=== PATIENT | male | born 1935 | race Caucasian/White ===

== ENCOUNTER 2025-02-18 16:30 | Inpatient (IN) | payer MEDICARE, MEDICAID ==
[~2025-02-18] VITALS: Ht 175.3 cm; Wt 81.2 kg
--- NOTE | 2025-02-18 16:59 | ECG ---
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
--- NOTE | 2025-02-18 17:04 | ED.PDOC ---
General HPI Comments 89 y/o M, BIBA, with PMHx of Alzheimer's disease, dementia, HTN, and DM II presents to the ED for CC of urinary. EMS reports, patient is coming from [facility] where he c/o dysuria and hematuria onset, (02/13/25). At this time patient complains of left leg pain, dizziness, and headache. Per EMS, patient had a fall x1 month ago landing on his right side and has a large bruise to his right arm for which he was never seen for. Patient is poor historian due to dementia; no additional details or history available at this time. Chief Complaint: Urinary Time Seen by MD: 17:00 Primary Care Provider: NONE Reviewed notes: Nurses Notes, Pulp Press Tender Notes, Medications, Allergies Allergies: Coded Allergies: Penicillins (Verified Allergy, Unknown, 02/18/25) Mode of Arrival: EMS Severity: Moderate Inability to void: None Timing: Weeks Duration: Since onset Prehospital treatment: None Onset: Spontaneous Symptoms: Dysuria History of: None Location: None Penile discharge: None Modifying factors: None associated signs and symptoms: Dysuria Past Medical History PAST MEDICAL HISTORY: Alzheimer, Dementia, Depression, DM, HTN Surgical History: Hernia Repair, Denies all surgeries Family History Family History: Unobtainable Social History Smoker: Cigarettes Alcohol: Heavy Drugs: Denies Drug Use Lives In: Home Constitutional: denies: chills, diaphoresis, fatigue, fever, malaise, sweats, weakness, others EENTM: denies: blurred vision, double vision, ear bleeding, ear discharge, ear drainage, ear pain, ear ringing, eye pain, eye redness, hearing loss, mouth pain, mouth swelling, nasal discharge, nose bleeding, nose congestion, nose pain, photophobia, tearing, throat pain, throat swelling, voice changes, others Respiratory: denies: cough, hemoptysis, orthopnea, SOB at rest, shortness of breath, SOB with excertion, stridor, wheezing, others Cardiovascular: denies: chest pain, dizzy spells, diaphoresis, Dyspnea on exertion, edema, irregular heart beat, left arm pain, lightheadedness, palpitations, PND, syncope, others Gastrointestinal: denies: abdomen distended, abdominal pain, blood streaked bowels, constipated, diarrhea, dysphagia, difficulty swallowing, hematemesis, me steph, nausea, poor appetite, poor fluid intake, rectal bleeding, rectal pain, vomiting, others Genitourinary: reports: burning, dysuria, hematuria; denies: flank pain, mehrdad quency, incontinence, penile discharge, penile sore, pain, testicle pain, testicle swelling, urgency, others Neurological: denies: dizziness, fainting, headache, left sided numbness, left sided weakness, numbness, paresthesia, pre-existing deficit, right sided numbness, right sided weakness, seizure, speech problems, tingling, tremors, weakness, others Musculoskeletal: reports: others (right leg pain); denies: back pain, gout, joint pain, joint swelling, muscle pain, muscle stiffness, neck pain Integumetry: denies: bruises, change in color, change in hair/nails, dryness, laceration, lesions, lumps, rash, wounds, others Allergic/Immunocompromised: denies: Difficulty Healing, Frequent Infections, Hives, Itching, others Hematologic/Lymphatic: denies: anemia, blood clots, easy bleeding, easy bruising, swollen glands, others Endocrine: denies: excessive hunger, excessive sweating, excessive thirst, excessive urination, flushing, intolerance to cold, intolerance to heat, unexplained weight gain, unexplained weight loss, others Psychiatric: denies: anxiety, bipolar disorder, depression, hopeless, panic disorder, schizophrenia, sleepless, suicidal, others All Other Systems: Reviewed and Negative Physical Exam General Appearance: No Apparent Distress, Normal HEENT: Normal ENT Inspection, Pharynx Normal Neck: Full Range of Motion, Non-Tender, Normal, Normal Inspection Respiratory: Chest Non-Tender, Lungs Clear, No Accessory Muscle Use, No Respiratory Distress, Normal Breath Sounds Cardiovascular: No Edema, No Murmur, No Gallop, Normal Peripheral Pulses, Regular Rate/Rhythm Breast Exam: Deferred Gastrointestinal: No Organomegaly, Non Tender, No Pulsatile Mass, Normal Bowel Sounds, Soft Genitalia: Deferred Pelvic: Deferred Rectal: Deferred Extremities: No calf tenderness, Normal capillary refill, Normal inspection, Normal range of motion, Non-tender, No pedal edema Musculoskeletal : Apperance: Normal Neurologic: Alert, head banquet waiter/waitress II-XII nml as Tested, No Motor Deficits, Normal Affect, Normal Mood, No Sensory Deficits Cerebellar Function: Normal Reflexes: Normal Skin: Dry, Normal Color, Warm Lymphatic: No Adenopathy Was a procedure done? Was a procedure done?: No Differential Diagnosis Kidney stone (Female): N/A Kidney stone (Male): Pyelonephritis, Urinary obstruction, Urolithiasis, Urinary tract infection Penile/Scrotal: N/A Urinary Problem (Male): UTI Urinary Problem (Female): N/A X-Ray, Labs, Meds, VS Vital Signs Date Time Temp Pulse Resp B/P (MAP) Pulse Ox O2 Delivery O2 Flow Rate FiO2 02/18/25 17:34 74 20 136/69 (91) 97 02/18/25 17:34 74 16 96 Room Air* 0 21 02/18/25 16:53 65 02/18/25 16:46 98.4 71 16 126/78 97 98.4 Lab Test 02/18/25 17:26 Range/Units White Blood Count 11.5 H 4.4-10.8 10^3/uL Red Blood Count 3.87 L 4.5-5.90 10^6/uL Hemoglobin 12.2 L 13.5-17.5 g/dL Hematocrit 36.4 L 41.0-53.0 % Mean Corpuscular Volume 93.8 80.0-100.0 fL Mean Corpuscular Hemoglobin 31.6 28.0-32.0 pg Mean Corpuscular Hemoglobin Concent 33.6 32.0-36.0 g/dL Red Cell Distribution Width 15.2 H 11.8-14.3 % Platelet Count 382 140-450 10^3/uL Mean Platelet Volume 6.7 L 6.9-10.8 fL Neutrophils (%) (Auto) 77.0 37.0-80.0 % Lymphocytes (%) (Auto) 12.1 10.0-50.0 % Monocytes (%) (Auto) 8.6 0.0-12.0 % Eosinophils (%) (Auto) 2.0 0.0-7.0 % Basophils (%) (Auto) 0.3 0.0-2.0 % Neutrophils # (Auto) 8.8 H 1.6-8.6 10 ^3/uL Lymphocytes # (Auto) 1.4 0.4-5.4 10 ^3/uL Monocytes # (Auto) 1.0 0-1.3 10 ^3/uL Eosinophils # (Auto) 0.2 0-0.8 10 ^3/uL Basophils # (Auto) 0 0-0.2 10 ^3/uL Nucleated Red Blood Cells 0.0 % Sodium Level 141 136-145 mmol/L Potassium Level 4.4 3.5-5.1 mmol/L Chloride Level 107 98-107 mmol/L Carbon Dioxide Level 25 20-31 mmol/L Anion Gap 9 5-15 Blood Urea Nitrogen 28 H 9-23 mg/dL Creatinine 1.15 0.700-1.30 mg/dL Glomerular Filtration Rate Calc 61 >90 mL/min BUN/Creatinine Ratio 24.3 H 10.0-20.0 Serum Glucose 99 74-106 mg/dL Calcium Level 9.1 8.7-10.4 mg/dL [place] [address] Ph: [phone] DIAGNOSTIC IMAGING Diagnostic Imaging Report : [id number] Signed PATIENT: CURRY ENRIQUEZ ACCT: [id number] UNIT: [id number] : 1935 LOC: ER ROOM / BED: / AGE / SEX: 89 / M ADM STATUS: REG ER SERVICE 1655 ORDERING PHYSICIAN: LINDA RANDOLPH PROCEDURE(s): HWOCT - HEAD WITHOUT CONTRAST REASON: head injury ORDER NUMBER(s): [id number], ACCESSION NUMBER(s): [id number] COMPUTERIZED TOMOGRAPHY OF THE HEAD WITHOUT CONTRAST REASON FOR STUDY: head injury COMPARISON: None TECHNIQUE: Helical tomographic scans were obtained through the brain. 2-D coronal and sagittal reformatted images are provided. Radiation optimization: All CT scans at this facility use at least one of these dose optimization techniques: Automated exposure control mA and/or kV adjustment per patient size (includes targeted exams where dose is matched to clinical indication) or iterative reconstruction. RADIATION DOSE: CTDI: 64 mGy DLP: 1127 mGy-cm FINDINGS: No suspicious intracranial hyperdensity to suggest acute blood. There is no mass effect nor midline shift. There is mild generalized volume loss with compensatory enlargement of the CSF spaces. There is no hydrocephalus. The suprasellar cistern is intact. There are scattered periventricular and deep white matter hypodensities that are most consistent with chronic microangiopathic changes. The calvarium is intact. The visualized mastoid air cells and paranasal sinuses are clear. There is soft tissue density in bilateral external auditory canals, likely cerumen. There is opacification of the epitympanum within the left middle ear. IMPRESSION: No acute intracranial abnormality. Mild generalized volume loss with chronic small vessel ischemic change. Opacification of the epitympanum within the left middle ear. This could represent fluid such as in the case of otitis media or a cholesteatoma in the co rrect clinical context. Correlate clinically. Nonemergent, outpatient temporal bone CT and/or MRI can be considered in the appropriate clinical context. ATED BY: ARIAN JOHNSON MD DICTATED DATE/TIME: 02/18/251733 SIGNED BY: ARIAN JOHNSON MD SIGNED DATE/TIME: 02/18/251733 CC: [place] [id number] Ph: [phone] DIAGNOSTIC IMAGING Diagnostic Imaging Report : [id number] Signed PATIENT: UCRRY ENRIQUEZ ACCT: [id number] UNIT: [id number] : 1935 LOC: ER ROOM / BED: / AGE / SEX: 89 / M ADM STATUS: REG ER SERVICE 54 ORDERING PHYSICIAN: LINDA RANDOLPH PROCEDURE(s): ABPL - CT AB PEL WO CON-NO ORAL OR IV REASON: abd pain ORDER NUMBER(s): [id number], ACCESSION NUMBER(s): [id number] Indication: abd pain Technique: CT axial images of the abdomen and pelvis are obtained without contrast. Coronal and sagittal reformats were obtained. Radiation Dose Information: CTDI volume is 14.8 mGy. Dose-length product is 757.93 mGy*cm Comparison: None FINDINGS: There is limited interpretation of the abdomen and pelvis without administration of intravenous contrast. Lung bases demonstrate atelectasis. Pulmonary emphysematous changes. Adrenal glands, spleen, pancreas unremarkable in shape. Cholelithiasis. 6 mm left hepatic lobe hypodensity, too small to characterize statistically likely represent cysts. The kidneys demonstrate no hydronephrosis / nephrolithiasis. Moderate size hiatal hernia. Stomach is relatively nondistended. Small bowel loops are normal in caliber. Colonic diverticular disease. Moderate volume stool within the colon. No secondary signs for appendicitis. Right inguinal hernia containing small bowel loops without evidence for obstruction measuring 4 x 3 cm. Abdominal aortic atherosclerotic disease. Bladder is partially distended. No free pelvic fluid. No inguinal lymphadenopathy. Severe degenerate changes of the left hip with [id number]. Moderate degenerate changes right hip. Moderate to advanced thoracolumbar degenerative disc disease. IMPRESSION: Limited evaluation without contrast. Cholelithiasis. Moderate volume stool within the colon. Colonic diverticular disease. Atherosclerotic disease. Right inguinal hernia measuring 4 x 3 cm without evidence for bowel obstruction. Severe degenerate changes left hip. Moderate size hiatal hernia. Other findings as described. ATED BY: KINGSLEY CHURCH MD DICTATED DATE/TIME: 02/18/251739 SIGNED BY: KINGSLEY CHURCH MD SIGNED DATE/TIME: 02/18/251739 CC: X-Ray, Labs, Meds, VS Comment Patient will be admitted for urinary tract infection. Patient has a history of dementia and Alzheimer's. Concerns of possible issues with self care. Recommend possible social service consult for placement Time of 1ST Reevaluation: 17:30 Reevaluation 1ST: Unchanged Patient Education/Counseling: Diagnosis, Treatment Family Education/Counseling: No Family Present SEPSIS Sepsis Screen Date sepsis recognized/suspect: Feb 18, 2025 Time Sepsis recognized/suspect: 1636 Recent Procedure: No On Antibiotic Therapy: No Respiratory Rate >20: No Heart Rate >90: No Temp<36 C (96.8 F) or >38.3 C: No SBP <90 or MAP <65 mmHG: No New Acute Mental Status Change: No Is the patient on CPAP, BIPAP,: No Physician Orders Head Without Contrast (02/18/25 16:55) Ct Ab Pel Wo Con-No Oral Or Iv (02/18/25 16:55) Urinalysis (02/18/25 16:55) Doxycycline 100mg/100ml (Vibramycin) (02/18/25 18:30) Morphine Sulfate Injection (02/18/25 18:30) Ondansetron Hcl (Zofran) (02/18/25 18:30) Vital Signs Date Time Temp Pulse Resp B/P (MAP) Pulse Ox O2 Delivery O2 Flow Rate FiO2 02/18/25 17:34 74 20 136/69 (91) 97 02/18/25 17:34 74 16 96 Room Air* 0 21 02/18/25 16:53 65 02/18/25 16:46 98.4 71 16 126/78 97 98.4 Laboratory Tests Test 02/18/25 17:26 White Blood Count 11.5 10^3/uL (4.4-10.8) H Departure 1 Departure Time of Disposition: 18:31 Impression: Primary Impression: UTI (urinary tract infection) Qualified Codes: N30.00 - Acute cystitis without hematuria Additional Impressions: Dementia Qualified Codes: G30.9 - Alzheimer's disease, unspecified; F02.B0 - Dementia in other diseases classified elsewhere, moderate, without behavioral disturbance, psychotic disturbance, mood disturbance, and anxiety Left hip pain Disposition: ADMITTED INPATIENT Condition: Stable Critical Care Note Critical Care Time?: No Stability Stability form required: No Heart Score Heart Score: Heart Score Response (Comments) Value History N/A 0 EKG N/A 0 Age N/A 0 Risk Factors N/A 0 Troponin N/A 0 Total 0 I personally scribed for RANDOLPH,CHRISTOPHER E AIRPLANE INSPECTOR ([facility]VRUICH) on 02/18/25 at 17:04. Electronically submitted by Chantel Vigil ([facility]). I personally scribed for RANDOLPH,CHRISTOPHER E AIRPLANE INSPECTOR ([employer]) on 02/18/25 at 17:11. Electronically submitted by Chantel Vigil ([facility]). I personally scribed for RANDOLPH,CHRISTOPHER E AIRPLANE INSPECTOR ([employer]) on 02/18/25 at 17:15. Electronically submitted by Chantel Vigil ([email or web address]). I personally scribed for RANDOLPH,CHRISTOPHER E AIRPLANE INSPECTOR ([place]) on 02/18/25 at 17:26. Electronically submitted by Chantel Vigil ([facility]). I personally scribed for RANDOLPH,CHRISTOPHER E AIRPLANE INSPECTOR ([employer]) on 02/18/25 at 17:50. Electronically submitted by Chantel Vigil ([facility]). I personally scribed for LINDA RANDOLPH ([facility]) on 02/18/25 at 17:52. Electronically submitted by Chantel Vigil ([email or web address]). LINDA RANDOLPH Feb 18, 2025 17:04
[2025-02-18 17:34] VITALS: PULSE 74; RESP 16; O2SAT 96
--- NOTE | 2025-02-18 17:37 | DVH ---
COMPUTERIZED TOMOGRAPHY OF THE HEAD WITHOUT CONTRAST REASON FOR STUDY: head injury COMPARISON: None TECHNIQUE: Helical tomographic scans were obtained through the brain. 2-D coronal and sagittal refor matted images are provided. Radiation optimization: All CT scans at this facility use at least one of these dose optimization techniques: Automated exposure control mA and/or kV adjustment per patient s ize (includes targeted exams where dose is matched to clinical indication) or iterative reconstructio n. RADIATION DOSE: CTDI: 64 mGy DLP: 1127 mGy-cm FINDINGS: No suspicious intracranial hyperdensity to suggest acute blood. There is no mass effect n or midline shift. There is mild generalized volume loss with compensatory enlargement of the CSF spac es. There is no hydrocephalus. The suprasellar cistern is intact. There are scattered periventricular and deep white matter hypodensities that are most consistent with chronic microangiopathic changes. The calvarium is intact. The visualized mastoid air cells and paranasal sinuses are clear. There is s oft tissue density in bilateral external auditory canals, likely cerumen. There is opacification of t he epitympanum within the left middle ear. IMPRESSION: No acute intracranial abnormality. Mild generalized volume loss with chronic small vessel ischemic change. Opacification of the epitympanum within the left middle ear. This could represent fluid such as in th e case of otitis media or a cholesteatoma in the correct clinical context. Correlate clinically. None mergent, outpatient temporal bone CT and/or MRI can be considered in the appropriate clinical context .
--- NOTE | 2025-02-18 17:41 | DVH ---
Indication: abd pain Technique: CT axial images of the abdomen and pelvis are obtained without contrast. Coronal and sagit karey reformats were obtained. Radiation Dose Information: CTDI volume is 14.8 mGy. Dose-length product is 757.93 mGy*cm Comparison: None FINDINGS: There is limited interpretation of the abdomen and pelvis without administration of intravenous contr ast. Lung bases demonstrate atelectasis. Pulmonary emphysematous changes. Adrenal glands, spleen, pancreas unremarkable in shape. Cholelithiasis. 6 mm left hepatic lobe hypod ensity, too small to characterize statistically likely represent cysts. The kidneys demonstrate no hydronephrosis / nephrolithiasis. Moderate size hiatal hernia. Stomach is relatively nondistended. Small bowel loops are normal in ca liber. Colonic diverticular disease. Moderate volume stool within the colon. No secondary signs for appendi citis. Right inguinal hernia containing small bowel loops without evidence for obstruction measuring 4 x 3 cm. Abdominal aortic atherosclerotic disease. Bladder is partially distended. No free pelvic fluid. No in guinal lymphadenopathy. Severe degenerate changes of the left hip with [id number]. Moderate degenerate changes right hip. M oderate to advanced thoracolumbar degenerative disc disease. IMPRESSION: Limited evaluation without contrast. Cholelithiasis. Moderate volume stool within the colon. Colonic diverticular disease. Atherosclerotic disease. Right inguinal hernia measuring 4 x 3 cm without evidence for bowel obstruction. Severe degenerate changes left hip. Moderate size hiatal hernia. Other findings as described.
[2025-02-18 17:42] LABS: Hematocrit 36.4 % (41.0-53.0); Hemoglobin 12.2 g/dL (13.5-17.5); Mean Corpuscular Hemoglobin 31.6 pg (28.0-32.0); Mean Corpuscular Volume 93.8 fL (80.0-100.0); Nucleated Red Blood Cells % 0.0 %
[2025-02-18 17:58] LABS: Potassium 4.4 mmol/L (3.5-5.1); Sodium 141 mmol/L (136-145)
[2025-02-18 17:59] LABS: Anion Gap 9 (5-15); Calcium 9.1 mg/dL (8.7-10.4); Carbon Dioxide 25 mmol/L (20-31)
[2025-02-18 18:04] LABS: BUN/Creatinine Ratio 24.3 (10.0-20.0); Glucose 99 mg/dL (74-106)
[2025-02-18 18:15] LABS: Blood Urea Nitrogen 28 mg/dL (9-23); Chloride 107 mmol/L (98-107)
[2025-02-18] MEDS: ONDANSETRON HCL 4 MG/2 ML VIAL IV ONE (18:46)
[2025-02-18] MEDS: DOXYCYCLINE 100MG/100ML 100 ML IV ONE (18:47)
[2025-02-18] MEDS: MORPHINE SULFATE 4 MG/ML SYR/VIAL IV ONE (18:51)
[2025-02-18] MEDS ORDERED: ESCI5TAB20 PO (18:52)
[2025-02-18] MEDS ORDERED: DOCUSATE SOD 100 MG CAP PO PRN (19:00)
[2025-02-18] MEDS ORDERED: DEXTROSE (50%) 50ML SYRG IV PRN (19:00)
[2025-02-18 19:45] VITALS: PULSE 84; RESP 20; O2SAT 96
[2025-02-18] MEDS: SOD CHL 0.45% 1,000 ML IV SCH (20:15)
--- NOTE | 2025-02-18 20:25 | DVHHP2 ---
History of Present Illness Reason for Visit: UTI (urinary tract infection) History of Present Illness The patient is a 89-year-old male with past medical history of Alzheimer, dementia, depression, diabetes mellitus, and hypertension who presented to [facility] ED for evaluation of hematuria. Patient is currently residing as [facility] and was complaint of left leg pain, dizziness, headache, dysuria, and hematuria onset. As reported by EMS, patient had a fall 1 month ago landing on his right-side with sustained large bruises to the right arm and was never seen for medical attention. Patient was seen and evaluated in the ED, laboratory data shows WBC 11.5, platelets 382, sodium 141, potassium 4.4, BUN 28, creatinine 1.15, glucose 99, calcium 9.1, blood pressure 136/69, heart rate 74, temperature 98.4 F, O2 saturation 97% on room air. Abdomen/pelvis CT revealing cholelithiasis, right inguinal hernia measuring 4 x 3 cm without evidence for bowel obstruction, severe degenerative changes left hip, moderate size hiatal hernia. Please see medication orders section in the computer. On my assessment, patient denies chest pain, no headache, no dizziness at this moment, no shortness of breaths, no nausea, no vomiting, no fever, no chills. Patient was admitted for further evaluation and medical management. Past Medical History Alzheimer, Dementia, Depression, DM, HTN Past Surgical History Hernia Repair Family History Reviewed, noncontributory to the management of this case. Past Social History The patient lives at home, smokes cigarettes, drinks alcohol heavily, denies illicit drugs abuse. Review of Systems Constitutional: No: Fever, Chills, Sweats, Weakness, Malaise, Other Eyes: No: Pain, Vision change, Conjunctivae inflammation, Eyelid inflammation, Other, Redness ENT: No: Ear pain, Ear discharge, Nose pain, Nose discharge, Nose congestion, Mouth pain, Mouth swelling, Throat pain, Throat swelling, Other Respiratory: No: Cough, Dry, Shortness of breath, SOB with excertion, Wheezing, Hemoptysis, Pleuritic Pain, Sputum, Wheezing, Other Cardiovascular: No: Chest Pain, Palpitations, Orthopnea, Paroxysmal Noc. Dy spnea, Edema, Lt Headedness, Other Gastrointestinal: No: Nausea, Vomiting, Abdominal Pain, Diarrhea, Constipation, Melena, Hematochezia, Other Genitourinary: Dysuria; No Frequency, No Incontinence; Hematuria; No Retention; Other (Burning) Musculoskeletal: other (right leg pain); No: neck pain, shoulder pain, arm pain, back pain, hand pain, leg pain, foot pain Skin: Other (Right arm bruises); No: Rash, Lesions, Jaundice, Bruising Neurological: No: Weakness, Numbness, Incoordination, Change in speech, Confusion, Seizures, Other Allergies: Coded Allergies: Penicillins (Verified Allergy, Unknown, 02/18/25) Medications Current Medications Medications Dose Ordered Sig/Rich Route Start Time Stop Time Status Last Admin Dose Admin Memantine 10 mg DAILY PO 02/19/25 10:00 Gabapentin 300 mg BID PO 02/18/25 22:00 Doxycycline Hyclate 100 ml @ 50 mls/hr Q12H IV 02/19/25 09:00 Tamsulosin HCl 0.4 mg QPM PO 02/19/25 18:00 Aspirin 81 mg DAILY PO 02/19/25 10:00 Diagnostic Test (Pha) 1 strip ACHS 02/18/25 22:00 Insulin Human Regular ACHS SC 02/18/25 22:00 Dextrose 50 ml UD PRN IV 02/18/25 19:00 Sodium Chloride 10 ml Q8HR IV 02/18/25 22:00 Acetaminophen/ Hydrocodone Bitart 1 tab Q4HP PRN PO 02/18/25 19:00 Ondansetron HCl 4 mg Q4HP PRN IV 02/18/25 19:00 Docusate Sodium 100 mg BIDPRN PRN PO 02/18/25 19:00 Acetaminophen 650 mg Q6HP PRN PO 02/18/25 19:00 Sodium Chloride 1,000 ml @ 50 mls/hr Q20H IV 02/18/25 19:00 Exam Vital Signs Vital Signs Date Time Temp Pulse Resp B/P (MAP) Pulse Ox O2 Delivery O2 Flow Rate FiO2 02/18/25 18:51 75 20 151/69 02/18/25 17:34 97 02/18/25 17:34 Room Air* 0 21 02/18/25 16:46 98.4 98.4 General Appearance: Alert, Oriented X3, Cooperative, No acute distress HEENT: Atraumatic, PERRLA, EOMI, Mucous membr. moist/pink Respiratory: Clear to auscultation, Normal air movement Cardiovascular: Regular rate, Normal S1, Normal S2, No murmurs Abdominal: Normal bowel sounds, Soft, No tenderness, No hepatospenomegaly, No masses Extremities: No clubbing, No cyanosis, No edema, Normal pulses, No tend erness/swelling Skin: No rashes, No significant lesion Neuro: Normal speech, Normal tone, Sensation intact, Cranial nerves 3-12 NL, Reflexes 2+, Other (Generalized weakness) Psych/Mental Status: Mental status NL, Mood NL Labs/Xrays Labs Test 02/18/25 17:26 Range/Units White Blood Count 11.5 H 4.4-10.8 10^3/uL Red Blood Count 3.87 L 4.5-5.90 10^6/uL Hemoglobin 12.2 L 13.5-17.5 g/dL Hematocrit 36.4 L 41.0-53.0 % Mean Corpuscular Volume 93.8 80.0-100.0 fL Mean Corpuscular Hemoglobin 31.6 28.0-32.0 pg Mean Corpuscular Hemoglobin Concent 33.6 32.0-36.0 g/dL Red Cell Distribution Width 15.2 H 11.8-14.3 % Platelet Count 382 140-450 10^3/uL Mean Platelet Volume 6.7 L 6.9-10.8 fL Neutrophils (%) (Auto) 77.0 37.0-80.0 % Lymphocytes (%) (Auto) 12.1 10.0-50.0 % Monocytes (%) (Auto) 8.6 0.0-12.0 % Eosinophils (%) (Auto) 2.0 0.0-7.0 % Basophils (%) (Auto) 0.3 0.0-2.0 % Neutrophils # (Auto) 8.8 H 1.6-8.6 10 ^3/uL Lymphocytes # (Auto) 1.4 0.4-5.4 10 ^3/uL Monocytes # (Auto) 1.0 0-1.3 10 ^3/uL Eosinophils # (Auto) 0.2 0-0.8 10 ^3/uL Basophils # (Auto) 0 0-0.2 10 ^3/uL Nucleated Red Blood Cells 0.0 % Sodium Level 141 136-145 mmol/L Potassium Level 4.4 3.5-5.1 mmol/L Chloride Level 107 98-107 mmol/L Carbon Dioxide Level 25 20-31 mmol/L Anion Gap 9 5-15 Blood Urea Nitrogen 28 H 9-23 mg/dL Creatinine 1.15 0.700-1.30 mg/dL Glomerular Filtration Rate Calc 61 >90 mL/min BUN/Creatinine Ratio 24.3 H 10.0-20.0 Serum Glucose 99 74-106 mg/dL Calcium Level 9.1 8.7-10.4 mg/dL PATIENT: CURRY ENRIQUEZ ACCT: [id number] UNIT: [id number] : 1935 LOC: ER ROOM / BED: / AGE / SEX: 89 / M ADM STATUS: REG ER SERVICE [id number] ORDERING PHYSICIAN: LINDA RANDOLPH PROCEDURE(s): ABPL - CT AB PEL WO CON-NO ORAL OR IV REASON: abd pain ORDER NUMBER(s): [id number], ACCESSION NUMBER(s): [id number] Indication: abd pain Technique: CT axial images of the abdomen and pelvis are obtained without contrast. Coronal and sagittal reformats were obtained. Radiation Dose Information: CTDI volume is 14.8 mGy. Dose-length product is 757.93 mGy*cm Comparison: None FINDINGS: There is limited interpretation of the abdomen and pelvis without administration of intravenous contrast. Lung bases demonstrate atelectasis. Pulmonary emphysematous changes. Adrenal glands, spleen, pancreas unremarkable in shape. Cholelithiasis. 6 mm left hepatic lobe hypodensity, too small to characterize statistically likely represent cysts. The kidneys demonstrate no hydronephrosis/nephrolithiasis. Moderate size hiatal hernia. Stomach is relatively nondistended. Small bowel loops are normal in caliber. Colonic diverticular disease. Moderate volume stool within the colon. No secondary signs for appendicitis. Right inguinal hernia containing small bowel loops without evidence for obstruction measuring 4 x 3 cm. Abdominal aortic atherosclerotic disease. Bladder is partially distended. No free pelvic fluid. No inguinal lymphadenopathy. Severe degenerate changes of the left hip with [id number]. Moderate degenerate changes right hip. Moderate to advanced thoracolumbar degenerative disc disease. IMPRESSION: Limited evaluation without contrast. Cholelithiasis. Moderate volume stool within the colon. Colonic diverticular disease. Atherosclerotic disease. Right inguinal hernia measuring 4 x 3 cm without evidence for bowel obstruction. Severe degenerate changes left hip. Moderate size hiatal hernia. Other findings as described. ORDERING PHYSICIAN: LINDA RANDOLPH PROCEDURE(s): HWOCT - HEAD WITHOUT CONTRAST REASON: head injury ORDER NUMBER(s): [id number], ACCESSION NUMBER(s): [id number] COMPUTERIZED TOMOGRAPHY OF THE HEAD WITHOUT CONTRAST REASON FOR STUDY: head injury COMPARISON: None TECHNIQUE: Helical tomographic scans were obtained through the brain. 2-D coronal and sagittal reformatted images are provided. Radiation optimization: All CT scans at this facility use at least one of these dose optimization techniques: Automated exposure control mA and/or kV adjustment per patient size (includes targeted exams where dose is matched to clinical indication) or iterative reconstruction. RADIATION DOSE: CTDI: 64 mGy DLP: 1127 mGy-cm FINDINGS: No suspicious intracranial hyperdensity to suggest acute blood. There is no mass effect nor midline shift. There is mild generalized volume loss with compensatory enlargement of the CSF spaces. There is no hydrocephalus. The suprasellar cistern is intact. There are scattered periventricular and deep white matter hypodensities that are most consistent with chronic microangiopathic changes. The calvarium is intact. The visualized mastoid air cells and paranasal sinuses are clear. There is soft tissue density in bilateral external auditory canals, likely cerumen. There is opacification of the epitympanum within the left middle ear. IMPRESSION: No acute intracranial abnormality. Mild generalized volume loss with chronic small vessel ischemic change. Opacification of the epitympanum within the left middle ear. This could represent fluid such as in the case of otitis media or a cholesteatoma in the correct clinical context. Correlate clinically. Nonemergent, outpatient temporal bone CT and/or MRI can be considered in the appropriate clinical context. SEPSIS Sepsis Screen Date sepsis recognized/suspect: Feb 18, 2025 Time Sepsis recognized/suspect: 1636 Recent Procedure: No On Antibiotic Therapy: No Respiratory Rate >20: No Heart Rate >90: No Temp<36 C (96.8 F) or >38.3 C: No SBP <90 or MAP <65 mmHG: No New Acute Mental Status Change: No Is the patient on CPAP, BIPAP,: No Physician Orders Head Without Contrast (02/18/25 16:55) Ct Ab Pel Wo Con-No Oral Or Iv (02/18/25 16:55) Urinalysis (02/18/25 16:55) Doxycycline 100mg/100ml (Vibramycin) (02/18/25 18:30) Consistent Carb(Ccho)Diabetes (02/19/25 Breakfast) Memantine Tablet (Namenda Tablet) (02/19/25 10:00) Gabapentin Capsule (Neurontin Capsule) (02/18/25 22:00) Tamsulosin Hydrochloride (Flomax) (02/19/25 18:00) Aspirin Tablet (02/19/25 10:00) Glucose Blood (Accu-Chek Comfort Curve T (02/18/25 22:00) Insulin R (Human) (Insulin R) (02/18/25 22:00) Dextrose 50% Syringe (02/18/25 19:00) Allergies (02/18/25 18:52) Code Status (02/18/25 18:52) Sodium Chloride Lock (Saline Lock Ns) (02/18/25 22:00) Oxygen Per Hour (02/18/25 18:52) Hydrocodone-Acet 5/325mg Tab (Dubois 5/32 (02/18/25 19:00) Ondansetron Hcl (Zofran) (02/18/25 19:00) Docusate Sodium Capsule (Colace Capsule) (02/18/25 19:00) Fall Risk Precautions In Place QSHIFT (02/18/25 18:52) Complete Blood Count (02/19/25 04:00) Comprehensive Metabolic Panel (02/19/25 04:00) Condition: Serious (02/18/25 18:52) Acetaminophen Tablet (Tylenol Tablet) (02/18/25 19:00) Maintain Bed Rest (02/18/25 18:52) Sequential Compression Device (02/18/25 ) Sod Chl 0.45% (Sodium Chloride 0.45% Via (02/18/25 19:00) Doxycycline 100mg/100ml (Vibramycin) (02/19/25 09:00) Admit (02/18/25 20:22) Nitroglycerin Sublingual (Ntrostat Subli (02/18/25 20:30) Morphine Sulfate Injection (02/18/25 20:30) Stat Ekg For Chest Pain (02/18/25 20:22) Notify Md Of Changes From Base (02/18/25 20:22) Centrifugal Supervisor For 24 Hours (02/18/25 20:22) Emergency Dysrhythmia Protocol (02/18/25 20:22) Rhythm Strips Once Every Shift (02/18/25 20:22) Oxygen By Nasal Cannula (02/18/25 20:22) Vital Signs Date Time Temp Pulse Resp B/P (MAP) Pulse Ox O2 Delivery O2 Flow Rate FiO2 02/18/25 18:51 75 20 151/69 02/18/25 17:34 74 20 136/69 (91) 97 02/18/25 17:34 74 16 96 Room Air* 0 21 02/18/25 16:53 65 02/18/25 16:46 98.4 71 16 126/78 97 98.4 Laboratory Tests Test 02/18/25 17:26 White Blood Count 11.5 10^3/uL (4.4-10.8) H Medications Medications Dose Ordered Sig/Rich Route Start Time Stop Time Status Last Admin Dose Admin Doxycycline Hyclate 100 ml @ 50 mls/hr ONCE ONCE IV 02/18/25 18:30 02/18/25 20:29 02/18/25 18:47 50 MLS/HR Morphine Sulfate 4 mg ONCE ONCE IV 02/18/25 18:30 02/18/25 18:36 DC 02/18/25 18:51 4 MG Ondansetron HCl 4 mg ONCE ONCE IV 02/18/25 18:30 02/18/25 18:36 DC 02/18/25 18:46 4 MG Assessment/Plan Assessment/Plan UTI (urinary tract infection) Acute cystitis without hematuria Left hip pain Leukocytosis, unspecified Dementia Generalized weakness Alzheimer's disease, unspecified Plan 1. Admit to telemetry unit 2. Breathing treatment 3. Pain control management 4. IV antibiotic management 5. Management of fluids and electrolytes 6. Consultation for hospitalist/orthopedic 7. Diagnostic test abdomen/pelvis CT 8. DVT prophylaxis-on SCDs 9. Repeat labs CBC, CMP in a.m. 10. Home medication reviewed and reconciled 11. Continue with current medical management 12. Treatment plan discussed with patient and RN. Patient verbalized understanding. Plan discussed with: Patient, Other (RN) My Orders Orders - JAMSHID GARCIA DNP Procedure Category Date Status Time Consistent DIET 02/19/25 Transmitted Carb(Ccho)Diabetes Breakfast Memantine Tablet PHA 02/19/25 In Process (Namenda Tablet) 10:00 Gabapentin Capsule PHA 02/18/25 In Process (Neurontin Capsule) 22:00 Tamsulosin PHA 02/19/25 In Process Hydrochloride (Flomax) 18:00 Aspirin Tablet PHA 02/19/25 In Process 10:00 Glucose Blood PHA 02/18/25 In Process (Accu-Chek Comfort 22:00 Insulin R (Human) PHA 02/18/25 In Process (Insulin R) 22:00 Dextrose 50% Syringe PHA 02/18/25 In Process 19:00 Allergies ALANA 02/18/25 In Process 18:52 Code Status CODE 02/18/25 Transmitted 18:52 Sodium Chloride Lock PHA 02/18/25 In Process (Saline Lock Ns) 22:00 Oxygen Per Hour RT 02/18/25 Transmitted 18:52 Hydrocodone-Acet PHA 02/18/25 In Process 5/325mg Tab (Dubois 19:00 Ondansetron Hcl PHA 02/18/25 In Process (Zofran) 19:00 Docusate Sodium PHA 02/18/25 In Process Capsule (Colace 19:00 Fall Risk Precautions ALANA 02/18/[address] 18:52 Complete Blood Count LAB 02/19/25 Verified 04:00 Comprehensive LAB 02/19/25 Verified Metabolic Panel 04:00 Condition: Serious ALANA 02/18/25 In Process 18:52 Acetaminophen Tablet PHA 02/18/25 In Process (Tylenol Tablet) 19:00 Maintain Bed Rest ALANA 02/18/25 In Process 18:52 Sequential ALANA 02/18/25 In Process Compression Device Sod Chl 0.45% (Sodium PHA 02/18/25 In Process Chloride 0.45% Via 19:00 Doxycycline PHA 02/19/25 In Process 100mg/100ml 09:00 Admit ADMIT 02/18/25 Transmitted 20:22 Nitroglycerin PHA 02/18/25 Transmitted Sublingual (Ntrostat 20:30 Morphine Sulfate PHA 02/18/25 Transmitted Injection 20:30 Stat Ekg For Chest ALANA 02/18/25 Transmitted Pain 20:22 Notify Of Changes ALANA 02/18/25 Transmitted From Base 20:22 Centrifugal Supervisor For ALANA 02/18/25 Transmitted 24 Hours 20:22 Emergency Dysrhythmia ALANA 02/18/25 Transmitted Protocol 20:22 Rhythm Strips Once [facility] 02/18/25 Transmitted Every Shift 20:22 Oxygen By Nasal RT 02/18/25 Transmitted Cannula 20:22 Problem List: (1) UTI (urinary tract infection) (2) Acute cystitis without hematuria (3) Left hip pain (4) Leukocytosis, unspecified (5) Dementia (6) Generalized weakness (7) Alzheimer's disease, unspecified Date of Service: Feb 18, 2025 Billing Provider: JAMSHID GARCIA DNP Common Visit Codes: [id number] INP/OBS CARE (HIGH) JAMSHID GARCIA DNP Feb 18, 2025 20:25
[2025-02-18] MEDS ORDERED: NITROGLYCERIN 0.4 MG SL TAB SL PRN (20:30)
[2025-02-18] MEDS: GABAPENTIN 300 MG CAP PO SCH (21:08)
[2025-02-18] MEDS: ACETAMINOPHEN 325 MG TAB PO PRN (21:08)
[2025-02-18] MEDS: MORPHINE SULFATE INJ 2 MG/ml SYRG IV PRN (21:09)
[2025-02-18] MEDS: SODIUM CHLOR 0.9% PF (SALINE LOCK) 10ML VIAL/SYR IV SCH (21:44)
[2025-02-18] MEDS: ACCU-CHEK COMFORT CURVE STRIP VI SCH (22:00)
[2025-02-18] MEDS: InsuLIN REG 1unit/0.01ml Soln (100units/ml) SC SCH (22:00)
[2025-02-19] VITALS (11 sets, daily range): BP systolic 94–140; BP diastolic 44–73; PULSE 63–90; RESP 15–20; TEMP 97.6–101.7; O2SAT 92–100
[2025-02-19 01:08] LABS: Urine Protein, UAD 1+ (Negative); Urine WBC Clumps PRESENT /hpf (None Seen)
[2025-02-19] MEDS ORDERED: METF-370 PO (02:13)
[2025-02-19] MEDS ORDERED: MEMA1TAB5 PO (02:13)
[2025-02-19] MEDS ORDERED: GABA-1250 PO (02:13)
[2025-02-19] MEDS ORDERED: DONE1TAB88 PO (02:13)
[2025-02-19] MEDS ORDERED: RIVA10TA2 PO (02:13)
[2025-02-19] MEDS ORDERED: ACET325T82 PO (02:13)
[2025-02-19] MEDS ORDERED: DOCU-94 PO (02:13)
[2025-02-19] MEDS ORDERED: IBUP-1455 PO (02:13)
[2025-02-19] MEDS ORDERED: ACET-6 PO (02:13)
[2025-02-19] MEDS ORDERED: HYDR-4072 PO (02:13)
[2025-02-19] MEDS ORDERED: DICL-545 EX (02:13)
[2025-02-19] MEDS ORDERED: ESCI5TAB PO (02:13)
[2025-02-19] MEDS ORDERED: TAMS0.4C39 PO (02:13)
[2025-02-19 07:10] LABS: Hematocrit 39.3 % (41.0-53.0); Hemoglobin 12.8 g/dL (13.5-17.5); Mean Corpuscular Hemoglobin 31.2 pg (28.0-32.0); Mean Corpuscular Volume 95.9 fL (80.0-100.0); Nucleated Red Blood Cells % 0.0 %
[2025-02-19 07:20] LABS: Alanine Aminotransferase 12 U/L (7-40); Albumin 4.1 g/dL (3.2-4.8); Alkaline Phosphatase 65 U/L (46-116); Anion Gap 10 (5-15); BUN/Creatinine Ratio 17.1 (10.0-20.0); Bilirubin, Total 0.4 mg/dL (0.2-1.0); Calcium 9.2 mg/dL (8.7-10.4); Carbon Dioxide 22 mmol/L (20-31); Chloride 107 mmol/L (98-107); Glucose 93 mg/dL (74-106); Potassium 4.8 mmol/L (3.5-5.1); Sodium 139 mmol/L (136-145); Total Protein 7.0 g/dL (5.7-8.2)
[2025-02-19 07:21] LABS: Blood Urea Nitrogen 24 mg/dL (9-23)
[2025-02-19] MEDS: DOXYCYCLINE 100MG/100ML 100 ML IV SCH (11:05)
[2025-02-19] MEDS: MEMANTINE HCL 5 MG TAB PO SCH (11:05)
--- NOTE | 2025-02-19 12:12 | DVHPN2 ---
Progress Note Date Seen: Feb 19, 2025 Medical Necessity Reason Pt with a Central, PICC or Fol: Yes The following are medically ne: Gomez Catheter Reason for gomez catheter: Strict I&O Subjective Patient reports: No new complaints Review of Systems: HEENT:Normal, CVS:Normal, RESPIRATORY:Normal, GI:Normal, :Normal, MSK:Normal, NEURO:Normal Objective vital signs Vital Sign Date Time Temp Pulse Resp B/P (MAP) Pulse Ox O2 Delivery O2 Flow Rate FiO2 02/19/25 08:59 99.3 83 15 124/51 (75) 93 99.3 02/19/25 01:41 Room Air* 0 21 Total Intake and Output 02/18/25 02/18/25 02/19/25 15:00 23:00 07:00 Intake Total 1050 ml Output Total 100 ml Balance 950 ml medications Current Medications Medications Dose Ordered Sig/Rich Route Start Time Stop Time Status Last Admin Dose Admin Memantine 10 mg DAILY PO 02/19/25 10:00 02/19/25 11:05 10 MG Gabapentin 300 mg BID PO 02/18/25 22:00 02/19/25 11:05 300 MG Doxycycline Hyclate 100 ml @ 50 mls/hr Q12H IV 02/19/25 09:00 02/19/25 11:05 50 MLS/HR Tamsulosin HCl 0.4 mg QPM PO 02/19/25 18:00 Aspirin 81 mg DAILY PO 02/19/25 10:00 02/19/25 11:05 81 MG Diagnostic Test (Pha) 1 strip ACHS 02/18/25 22:00 02/19/25 06:25 1 STRIP Insulin Human Regular ACHS SC 02/18/25 22:00 Dextrose 50 ml UD PRN IV 02/18/25 19:00 Sodium Chloride 10 ml Q8HR IV 02/18/25 22:00 02/19/25 06:27 10 ML Acetaminophen/ Hydrocodone Bitart 1 tab Q4HP PRN PO 02/18/25 19:00 Ondansetron HCl 4 mg Q4HP PRN IV 02/18/25 19:00 Docusate Sodium 100 mg BIDPRN PRN PO 02/18/25 19:00 Acetaminophen 650 mg Q6HP PRN PO 02/18/25 19:00 02/19/25 01:31 650 MG Sodium Chloride 1,000 ml @ 50 mls/hr Q20H IV 02/18/25 19:00 02/18/25 20:15 50 MLS/HR Nitroglycerin 0.4 mg Q5MINP PRN SL 02/18/25 20:30 Morphine Sulfate 2 mg Q30M PRN IV 02/18/25 20:30 02/18/25 21:09 2 MG Examination: GENERAL:Normal, HEENT:Normal, NECK:Normal, LUNGS:Normal, CVS:Normal, ABDOMEN:Normal, MSK:Normal, SKIN:Normal, NEURO:Normal, :Normal laboratory and microbiology Laboratory Tests 02/19/25 06:37 Test 02/19/25 06:37 Range/Units Serum Glucose 93 74-106 mg/dL Problem List/Assessment/Plan Problem List/Assessment/Plan #1 sepsis with uti: iv invanz, cultures #2 bph #3 dm: ssi #4 htn #5 dementia #6 left hip pain/djd #7 gallstones #8 right inguinal /hiatal hernia advance care planning- full code- time spent 19 mins Plan discussed with: Patient My Orders My Orders Orders - MATY BETANCOURT MD Procedure Category Date Status Time L Hip 1v Xray XY 02/19/25 Logged 12:04 Blood Culture CRISTIAN 02/19/25 Transmitted 12:04 Urine Bacterial CRISTIAN 02/19/25 Transmitted Culture 12:04 NS PHA 02/19/25 Transmitted 12:15 Invanz 1gm Ivpb X One PHA 02/19/25 Transmitted 12:15 Invanz 1gm Ivpb Daily PHA 02/20/25 Transmitted 10:00 Basic Metabolic Panel LAB 02/20/25 Verified 06:00 Complete Blood Count LAB 02/20/25 Verified 06:00 Chest Portable XY 02/19/25 Logged 12:04 Vitamin B12 LAB 02/20/25 Verified 06:00 Thyroid Stimulating LAB 02/20/25 Verified Hormone 05:00 Echo 2d Mode Cardiac US 02/19/25 Verified DOP 12:09 Date of Service: Feb 19, 2025 Billing Provider: MATY BETANCOURT MD Common Visit Codes: [id number] INP/OBS CARE(HIGH) Secondary Visit Codes: [id number] CARE PLAN 30 MINUTES MATY BETANCOURT MD Feb 19, 2025 12:12
--- NOTE | 2025-02-19 14:43 | DVH ---
INDICATION: htn TECHNIQUE: Frontal view of the chest. COMPARISON: None FINDINGS: The heart and mediastinal contours are grossly unremarkable. There is no evidence of pleural diseas e. The lungs are clear. The bony structures of the chest are intact without fracture. IMPRESSION: 1. No evidence of acute disease.
--- NOTE | 2025-02-19 14:58 | DVH ---
RIGHTLEFT HIP RADIOGRAPH. CLINICAL INDICATION: pain TECHNIQUE: 4 views of the left hip were obtained. FINDINGS: There is no evidence of fracture, subluxation or dislocation.Severe left hip osteoarthritis . Villalba catheter bladder. IMPRESSION: 1. No evidence of acute bony injury.
[2025-02-19] MEDS: ERTAPENEM SOD INJ 1 GM in SODIUM CHL 0.9% 50 ML IV ONE (15:28)
[2025-02-19] MEDS: SODIUM CHLORIDE 0.9% 1,000 ML IV SCH (15:28)
[2025-02-19] MEDS: TAMSULOSIN HYDROCHLORIDE 0.4 MG CAP PO SCH (18:16)
[2025-02-19] MEDS: HYDROcodone-ACET 5/325MG TAB PO PRN (23:38)
[2025-02-20] VITALS (8 sets, daily range): BP systolic 103–128; BP diastolic 48–78; PULSE 55–78; RESP 15–16; TEMP 97.2–98.2; O2SAT 93–95
[2025-02-20 08:23] LABS: Hematocrit 34.9 % (41.0-53.0); Hemoglobin 11.5 g/dL (13.5-17.5); Mean Corpuscular Hemoglobin 30.8 pg (28.0-32.0); Mean Corpuscular Volume 93.8 fL (80.0-100.0); Nucleated Red Blood Cells % 0.1 %
[2025-02-20 09:29] LABS: Potassium 4.2 mmol/L (3.5-5.1); Sodium 139 mmol/L (136-145)
[2025-02-20 09:30] LABS: Anion Gap 11 (5-15); Calcium 9.1 mg/dL (8.7-10.4); Carbon Dioxide 21 mmol/L (20-31); Chloride 107 mmol/L (98-107)
[2025-02-20 09:35] LABS: BUN/Creatinine Ratio 19.5 (10.0-20.0); Glucose 88 mg/dL (74-106)
[2025-02-20 09:38] LABS: Blood Urea Nitrogen 24 mg/dL (9-23)
[2025-02-20] MEDS: ERTAPENEM SOD INJ 1 GM in SODIUM CHL 0.9% 50 ML IV SCH (09:48)
--- NOTE | 2025-02-20 11:10 | DVHPN2 ---
Progress Note Date Seen: Feb 20, 2025 Medical Necessity Reason Pt with a Central, PICC or Fol: Yes The following are medically ne: Gomez Catheter Reason for gomez catheter: Strict I&O Subjective Patient reports: No new complaints Review of Systems: HEENT:Normal, CVS:Normal, RESPIRATORY:Normal, GI:Normal, :Normal, MSK:Normal, NEURO:Normal Objective vital signs Vital Sign Date Time Temp Pulse Resp B/P (MAP) Pulse Ox O2 Delivery O2 Flow Rate FiO2 02/20/25 08:53 98.2 72 15 108/48 (68) 95 98.2 02/20/25 08:10 Room Air* 0 21 Total Intake and Output 02/19/25 02/19/25 02/20/25 15:00 23:00 07:00 Intake Total 350 ml 1200 ml Output Total 600 ml 525 ml Balance -250 ml 675 ml medications Current Medications Medications Dose Ordered Sig/Rich Route Start Time Stop Time Status Last Admin Dose Admin Memantine 10 mg DAILY PO 02/19/25 10:00 02/20/25 09:43 10 MG Gabapentin 300 mg BID PO 02/18/25 22:00 02/20/25 09:43 300 MG Tamsulosin HCl 0.4 mg QPM PO 02/19/25 18:00 02/19/25 18:16 0.4 MG Aspirin 81 mg DAILY PO 02/19/25 10:00 02/20/25 09:45 81 MG Diagnostic Test (Pha) 1 strip ACHS 02/18/25 22:00 02/20/25 06:15 1 STRIP Insulin Human Regular ACHS SC 02/18/25 22:00 Dextrose 50 ml UD PRN IV 02/18/25 19:00 Sodium Chloride 10 ml Q8HR IV 02/18/25 22:00 02/20/25 05:32 10 ML Acetaminophen/ Hydrocodone Bitart 1 tab Q4HP PRN PO 02/18/25 19:00 02/20/25 09:44 1 TAB Ondansetron HCl 4 mg Q4HP PRN IV 02/18/25 19:00 Docusate Sodium 100 mg BIDPRN PRN PO 02/18/25 19:00 Acetaminophen 650 mg Q6HP PRN PO 02/18/25 19:00 02/19/25 01:31 650 MG Nitroglycerin 0.4 mg Q5MINP PRN SL 02/18/25 20:30 Morphine Sulfate 2 mg Q30M PRN IV 02/18/25 20:30 02/18/25 21:09 2 MG Sodium Chloride 1,000 ml @ 75 mls/hr [id number] IV 02/19/25 12:15 02/20/25 03:34 75 MLS/HR Ertapenem 1 gm/ Sodium Chloride 50 ml @ 100 mls/hr DAILY IV 02/20/25 10:00 02/20/25 09:48 100 MLS/HR Examination: GENERAL:Normal, HEENT:Normal, NECK:Normal, LUNGS:Normal, CVS:Normal, ABDOMEN:Normal, MSK:Normal, SKIN:Normal, NEURO:Normal, :Normal laboratory and microbiology Laboratory Tests 02/20/25 07:32 Test 02/20/25 07:32 Range/Units Serum Glucose 88 74-106 mg/dL Microbiology Date/Time Source Procedure Growth Status 02/19/25 13:44 Urine - Gomez Port Urine Culture - Preliminary Resulted 02/19/25 04:27 Nose MRSA Screen - Final Complete Problem List/Assessment/Plan Problem List/Assessment/Plan #1 sepsis with uti: iv invanz, cultures #2 bph #3 dm: ssi #4 htn #5 dementia #6 left hip pain/djd #7 gallstones #8 right inguinal /hiatal hernia #9 left knee pain: xray advance care planning- full code- time spent 19 mins Plan discussed with: Patient My Orders My Orders Orders - MATY BETANCOURT MD Procedure Category Date Status Time L Hip 1v Xray XY 02/19/25 Resulted 12:04 Blood Culture CRISTIAN 02/19/25 In Process 12:04 Urine Bacterial CRISTIAN 02/19/25 In Process Culture 12:04 Sodium Chloride 0.9% PHA 02/19/25 In Process 12:15 Ertapenem Sod Inj PHA 02/20/25 In Process (Invanz) 10:00 Chest Portable XY 02/19/25 Resulted 12:04 Thyroid Stimulating LAB 02/20/25 In Process Hormone 05:00 Date of Service: Feb 20, 2025 Billing Provider: MATY BETANCOURT MD Common Visit Codes: [id number] INP/OBS CARE(HIGH) MATY BETANCOURT MD Feb 20, 2025 11:10
--- NOTE | 2025-02-20 14:16 | DVH ---
EXAM: XY L KNEE 2V XRAY CLINICAL INDICATION: PAIN LEFT KNEE TECHNIQUE: XY L KNEE 2V XRAY Comparison: XY L HIP 1V XRAY on DOS: 02/19/25 FINDINGS/IMPRESSION: There is no evidence of acute fracture or dislocation. Moderate left knee osteoarthritis. The alignment is anatomical. There is no radiopaque foreign body.
--- NOTE | 2025-02-20 18:01 | DVHSR ---
APPROVED REPORT EXAM: Two-dimensional and M-mode echocardiogram with Doppler and color Doppler. Blood Pressure: 124/51 mmHg INDICATION htn RISK FACTORS Height: 5'9, Weight: 173 DIMENSIONS LVDd4.5 (3.8-5.7cm)LA (2D)4.3 (1.9-4.0cm)Aortic Root3.9 (2.0-3.7cm) LVDs3.2 (2.5-4.0cm)LA (MM) (1.9-4.0cm)Aortic Cusp Exc1.6 (1.5-2.0cm) EF (%) 55.0 (55-70%)Rt. Atrium3.4 (1.9-4.0cm)Asc. Aorta3.8 cm IVSd1.2 (0.7-1.1cm)RV (D) (1.8-2.4cm) PWd1.0 (0.7-1.1cm) Mitral Valve MitralMitral Stenosis E wave0.71m/sMV Mean GR.mmHg A wave1.37m/sMV Peak GR.mmHg E/A ratio0.52D MVAcm2 DECEL [id number] 1/2 Timems Aortic Valve Aortic ValveAortic Stenosis V11.63m/Heather Mean GR.7mmHg V21.69m/Heather Peak GR.11mmHg LVOT Diameter2.5 (1.8-2.4cm)Doppler AVA4.73cm2 Pulmonic Valve V21.07m/s Tricuspid Valve TR Velocity2.95m/s [id number] Conclusion Sinus rhythm. Left atrial enlargement. Concentric LVH. Aortic root enlargement. Moderate mitral annular calcification. Moderate aortic sclerosis without severe stenosis. The tricu spid and pulmonic or structurally normal. Left ventricular systolic function is preserved at 60% with normal RV function. Moderate tricuspid regurgitation. No pericardial effusion masses or vegetations.
[2025-02-21] VITALS (8 sets, daily range): BP systolic 105–133; BP diastolic 48–86; PULSE 58–84; RESP 15–20; TEMP 97.6–98.1; O2SAT 92–97
[2025-02-21 08:41] LABS: Hematocrit 34.8 % (41.0-53.0); Hemoglobin 11.6 g/dL (13.5-17.5); Mean Corpuscular Hemoglobin 31.2 pg (28.0-32.0); Mean Corpuscular Volume 93.6 fL (80.0-100.0); Nucleated Red Blood Cells % 0.0 %
--- NOTE | 2025-02-21 17:41 | DVHPN2 ---
Subjective Denies any complaints Changes from previous H/P or p: Changes Eyes: No Pain, No Vision change, No Conjunctivae inflammation, No Eyelid inflammation, No Other, No Redness ENT: No Ear pain, No Ear discharge, No Nose pain, No Nose discharge, No Nose congestion, No Mouth pain, No Mouth swelling, No Throat pain, No Throat swelling, No Other Cardiovascular: No Chest Pain, No Palpitations, No Orthopnea, No Paroxysmal Noc. Dyspnea, No Edema, No Lt Headedness, No Other Respiratory: No Cough, No Dry, No Shortness of breath, No SOB with excertion, No Wheezing, No Hemoptysis, No Pleuritic Pain, No Sputum, No Other Gastrointestinal: No Nausea, No Vomiting, No Abdominal Pain, No Diarrhea, No Constipation, No Melena, No Hematochezia, No Other Genitourinary: Dysuria; No Frequency, No Incontinence; Hematuria; No Retention; Other (Burning) Musculoskeletal: other (right leg pain); No neck pain, No shoulder pain, No arm pain, No back pain, No hand pain, No leg pain, No foot pain Skin: No Rash, No Lesions, No Jaundice, No Bruising; Other (Right arm bruises) Objective Vitals Vital Signs Date Time Temp Pulse Resp B/P (MAP) Pulse Ox O2 Delivery O2 Flow Rate FiO2 02/21/25 17:00 98.0 58 20 133/71 (91) 97 98.0 02/21/25 08:00 Room Air* 0 21 Intake/Output Intake and Output 02/21/25 07:00 Intake Total 1200 ml Output Total 1175 ml Balance 25 ml Intake Oral 1000 ml IV Total 200 ml Output Urine Total 1175 ml General Appearance: Alert, Oriented X3, Cooperative, No acute distress Lungs: Clear to auscultation, Normal air movement Cardiovascular: Regular rate, Normal S1 Abdomen: Normal bowel sounds, Soft Extremities: No edema Medications Current Medications Medications Dose Ordered Sig/Rich Route Start Time Stop Time Status Last Admin Dose Admin Memantine 10 mg DAILY PO 02/19/25 10:00 02/21/25 09:44 10 MG Gabapentin 300 mg BID PO 02/18/25 22:00 02/21/25 09:45 300 MG Tamsulosin HCl 0.4 mg QPM PO 02/19/25 18:00 02/20/25 19:24 0.4 MG Aspirin 81 mg DAILY PO 02/19/25 10:00 02/21/25 09:44 81 MG Diagnostic Test (Pha) 1 strip ACHS 02/18/25 22:00 02/21/25 17:24 1 STRIP Insulin Human Regular ACHS SC 02/18/25 22:00 Dextrose 50 ml UD PRN IV 02/18/25 19:00 Sodium Chloride 10 ml Q8HR IV 02/18/25 22:00 02/21/25 13:26 10 ML Acetaminophen/ Hydrocodone Bitart 1 tab Q4HP PRN PO 02/18/25 19:00 02/21/25 16:06 1 TAB Ondansetron HCl 4 mg Q4HP PRN IV 02/18/25 19:00 Docusate Sodium 100 mg BIDPRN PRN PO 02/18/25 19:00 Acetaminophen 650 mg Q6HP PRN PO 02/18/25 19:00 02/19/25 01:31 650 MG Nitroglycerin 0.4 mg Q5MINP PRN SL 02/18/25 20:30 Morphine Sulfate 2 mg Q30M PRN IV 02/18/25 20:30 02/18/25 21:09 2 MG Ertapenem 1 gm/ Sodium Chloride 50 ml @ 100 mls/hr DAILY IV 02/20/25 10:00 02/21/25 10:49 100 MLS/HR Laboratory Results Laboratory Tests 02/20/25 07:32 02/21/25 07:49 Urinalysis Test 02/19/25 00:20 Urine Color Brown (Yellow) H Urine Clarity Ex.turbid (Clear) Urine pH 5.5 (5.0-9.0) Urine Specific [place] 1.015 (1.001-1.035) Urine Protein 1+ (Negative) H Urine Ketones Negative (Negative) Urine Blood 2+ /uL (Negative) H Urine Nitrite Negative (Negative) Urine Bilirubin Negative (Negative) Urine Urobilinogen Normal mg/dL (Negative) Urine Leukocyte Esterase 3+ /uL (Negative) Urine RBC 53 /hpf (0 - 3) Urine WBC Clumps Present /hpf (None Seen) Urine Microscopic WBC 4870 /HPF (0-3) H Urine Squamous Epithelial Cells None seen /hpf (<5) Urine Bacteria None seen /hpf (None Seen) Urine Mucus Few (None Seen) Urine Glucose Normal mg/dL (Normal) Microbiology Microbiology Date/Time Source Procedure Growth Status 02/19/25 13:44 Urine - [place] Urine Culture - Final Escherichia coli - ESBL Proteus mirabilis Complete 02/19/25 13:41 Blood Blood Culture - Preliminary NO GROWTH AFTER 48 HOURS OF INCUBATION. Resulted 02/19/25 04:27 Nose MRSA Screen - Final Complete Assessment/Plan Assessment/Plan Sepsis UTI with ESBL BPH HTN DM2 PLAN: Ertapenem IV [facility] eval Plan discussed with: Patient Date of Service: Feb 21, 2025 Billing Provider: LU LOJA MD Common Visit Codes: [id number] INP/OBS CARE(HIGH) LU LOJA MD Feb 21, 2025 17:41
[2025-02-21] MEDS: ONDANSETRON HCL 4 MG/2 ML VIAL IV PRN (22:32)
[2025-02-22] VITALS (8 sets, daily range): BP systolic 110–142; BP diastolic 56–69; PULSE 62–88; RESP 15–19; TEMP 97.3–98.4; O2SAT 91–96
--- NOTE | 2025-02-22 10:14 | DVHPN2 ---
Subjective Denies any complaints IV went bad, needs a new one Changes from previous H/P or p: No Changes Eyes: No Pain, No Vision change, No Conjunctivae inflammation, No Eyelid inflammation, No Other, No Redness ENT: No Ear pain, No Ear discharge, No Nose pain, No Nose discharge, No Nose congestion, No Mouth pain, No Mouth swelling, No Throat pain, No Throat swelling, No Other Cardiovascular: No Chest Pain, No Palpitations, No Orthopnea, No Paroxysmal Noc. Dyspnea, No Edema, No Lt Headedness, No Other Respiratory: No Cough, No Dry, No Shortness of breath, No SOB with excertion, No Wheezing, No Hemoptysis, No Pleuritic Pain, No Sputum, No Other Gastrointestinal: No Nausea, No Vomiting, No Abdominal Pain, No Diarrhea, No Constipation, No Melena, No Hematochezia, No Other Genitourinary: Dysuria; No Frequency, No Incontinence; Hematuria; No Retention; Other (Burning) Musculoskeletal: other (right leg pain); No neck pain, No shoulder pain, No arm pain, No back pain, No hand pain, No leg pain, No foot pain Skin: No Rash, No Lesions, No Jaundice, No Bruising; Other (Right arm bruises) Objective Vitals Vital Signs Date Time Temp Pulse Resp B/P (MAP) Pulse Ox O2 Delivery O2 Flow Rate FiO2 02/22/25 09:00 98.4 64 16 122/66 (84) 96 98.4 02/22/25 08:00 Nasal Cannula* 2 28 Intake/Output Intake and Output 02/22/25 07:00 Intake Total 1000 ml Output Total 1250 ml Balance -250 ml Intake Oral 950 ml IV Total 50 ml Output Urine Total 1250 ml General Appearance: Alert, Oriented X3, Cooperative, No acute distress Lungs: Clear to auscultation, Normal air movement Cardiovascular: Regular rate, Normal S1 Abdomen: Normal bowel sounds, Soft Extremities: No edema Medications Current Medications Medications Dose Ordered Sig/Rich Route Start Time Stop Time Status Last Admin Dose Admin Memantine 10 mg DAILY PO 02/19/25 10:00 02/22/25 09:07 10 MG Gabapentin 300 mg BID PO 02/18/25 22:00 02/22/25 09:07 300 MG Tamsulosin HCl 0.4 mg QPM PO 02/19/25 18:00 02/21/25 18:20 0.4 MG Aspirin 81 mg DAILY PO 02/19/25 10:00 02/22/25 09:07 81 MG Diagnostic Test (Pha) 1 strip ACHS 02/18/25 22:00 02/22/25 05:20 1 STRIP Insulin Human Regular ACHS SC 02/18/25 22:00 Dextrose 50 ml UD PRN IV 02/18/25 19:00 Sodium Chloride 10 ml Q8HR IV 02/18/25 22:00 02/22/25 05:16 10 ML Acetaminophen/ Hydrocodone Bitart 1 tab Q4HP PRN PO 02/18/25 19:00 02/21/25 16:06 1 TAB Ondansetron HCl 4 mg Q4HP PRN IV 02/18/25 19:00 02/22/25 04:16 4 MG Docusate Sodium 100 mg BIDPRN PRN PO 02/18/25 19:00 Acetaminophen 650 mg Q6HP PRN PO 02/18/25 19:00 02/19/25 01:31 650 MG Nitroglycerin 0.4 mg Q5MINP PRN SL 02/18/25 20:30 Morphine Sulfate 2 mg Q30M PRN IV 02/18/25 20:30 02/18/25 21:09 2 MG Ertapenem 1 gm/ Sodium Chloride 50 ml @ 100 mls/hr DAILY IV 02/20/25 10:00 02/22/25 09:17 100 MLS/HR Laboratory Results Laboratory Tests 02/20/25 07:32 02/21/25 07:49 Urinalysis Test 02/19/25 00:20 Urine Color Brown (Yellow) H Urine Clarity Ex.turbid (Clear) Urine pH 5.5 (5.0-9.0) Urine Specific [place] 1.015 (1.001-1.035) Urine Protein 1+ (Negative) H Urine Ketones Negative (Negative) Urine Blood 2+ /uL (Negative) H Urine Nitrite Negative (Negative) Urine Bilirubin Negative (Negative) Urine Urobilinogen Normal mg/dL (Negative) Urine Leukocyte Esterase 3+ /uL (Negative) Urine RBC 53 /hpf (0 - 3) Urine WBC Clumps Present /hpf (None Seen) Urine Microscopic WBC 4870 /HPF (0-3) H Urine Squamous Epithelial Cells None seen /hpf (<5) Urine Bacteria None seen /hpf (None Seen) Urine Mucus Few (None Seen) Urine Glucose Normal mg/dL (Normal) Microbiology Microbiology Date/Time Source Procedure Growth Status 02/19/25 13:44 Urine - [place] Urine Culture - Final Escherichia coli - ESBL Proteus mirabilis Complete 02/19/25 13:41 Blood Blood Culture - Preliminary NO GROWTH AFTER 48 HOURS OF INCUBATION. Resulted 02/19/25 04:27 Nose MRSA Screen - Final Complete Assessment/Plan Assessment/Plan Sepsis UTI with ESBL BPH HTN DM2 PLAN: Ertapenem IV [facility] eval 02/22/2025: Continue the ertapenem IV Insert a new IV Pain control with [place] p.r.n. Continue gabapentin Tamsulosin for BPH Monitor closely The rest of the management will depend on the hospital course Plan discussed with: Patient My Orders Orders - LU LOJA MD Procedure Category Date Status Time Pt Request For Service PT 02/21/25 Logged 17:40 Mrsa Screen CRISTIAN 02/21/25 In Process 20:00 Initiate Vte ALANA 02/22/25 In Process Prophylaxis 10:02 Date of Service: Feb 22, 2025 Billing Provider: LU LOJA MD Common Visit Codes: [id number] INP/OBS CARE(HIGH) LU LOJA MD Feb 22, 2025 10:14
[2025-02-23] VITALS (8 sets, daily range): BP systolic 101–124; BP diastolic 57–68; PULSE 61–74; RESP 15–20; TEMP 96.3–98.4; O2SAT 93–96
--- NOTE | 2025-02-23 10:41 | DVHPN2 ---
Subjective DOING WELL COMFORTABLE NO NEW COMPLAINTS Changes from previous H/P or p: Changes Eyes: No Pain, No Vision change, No Conjunctivae inflammation, No Eyelid inflammation, No Other, No Redness ENT: No Ear pain, No Ear discharge, No Nose pain, No Nose discharge, No Nose congestion, No Mouth pain, No Mouth swelling, No Throat pain, No Throat swelling, No Other Cardiovascular: No Chest Pain, No Palpitations, No Orthopnea, No Paroxysmal Noc. Dyspnea, No Edema, No Lt Headedness, No Other Respiratory: No Cough, No Dry, No Shortness of breath, No SOB with excertion, No Wheezing, No Hemoptysis, No Pleuritic Pain, No Sputum, No Other Gastrointestinal: No Nausea, No Vomiting, No Abdominal Pain, No Diarrhea, No Constipation, No Melena, No Hematochezia, No Other Genitourinary: Dysuria; No Frequency, No Incontinence; Hematuria; No Retention; Other (Burning) Musculoskeletal: other (right leg pain); No neck pain, No shoulder pain, No arm pain, No back pain, No hand pain, No leg pain, No foot pain Skin: No Rash, No Lesions, No Jaundice, No Bruising; Other (Right arm bruises) Objective Vitals Vital Signs Date Time Temp Pulse Resp B/P (MAP) Pulse Ox O2 Delivery O2 Flow Rate FiO2 02/23/25 08:55 96.3 74 18 111/67 (82) 93 96.3 02/23/25 07:52 Room Air* 0 21 Intake/Output Intake and Output 02/23/25 07:00 Intake Total 1395 ml Output Total 1525 ml Balance -130 ml Intake Oral 1345 ml IV Total 50 ml Output Urine Total 1525 ml General Appearance: Alert, Oriented X3, Cooperative, No acute distress Lungs: Clear to auscultation, Normal air movement Cardiovascular: Regular rate, Normal S1 Abdomen: Normal bowel sounds, Soft Extremities: No edema Medications Current Medications Medications Dose Ordered Sig/Rich Route Start Time Stop Time Status Last Admin Dose Admin Memantine 10 mg DAILY PO 02/19/25 10:00 02/23/25 08:09 10 MG Gabapentin 300 mg BID PO 02/18/25 22:00 02/23/25 08:09 300 MG Tamsulosin HCl 0.4 mg QPM PO 02/19/25 18:00 02/22/25 18:03 0.4 MG Aspirin 81 mg DAILY PO 02/19/25 10:00 02/23/25 08:09 81 MG Diagnostic Test (Pha) 1 strip ACHS 02/18/25 22:00 02/23/25 06:15 1 STRIP Insulin Human Regular ACHS SC 02/18/25 22:00 Dextrose 50 ml UD PRN IV 02/18/25 19:00 Sodium Chloride 10 ml Q8HR IV 02/18/25 22:00 02/23/25 06:15 10 ML Acetaminophen/ Hydrocodone Bitart 1 tab Q4HP PRN PO 02/18/25 19:00 02/21/25 16:06 1 TAB Ondansetron HCl 4 mg Q4HP PRN IV 02/18/25 19:00 02/22/25 04:16 4 MG Docusate Sodium 100 mg BIDPRN PRN PO 02/18/25 19:00 Acetaminophen 650 mg Q6HP PRN PO 02/18/25 19:00 02/19/25 01:31 650 MG Nitroglycerin 0.4 mg Q5MINP PRN SL 02/18/25 20:30 Morphine Sulfate 2 mg Q30M PRN IV 02/18/25 20:30 02/18/25 21:09 2 MG Ertapenem 1 gm/ Sodium Chloride 50 ml @ 100 mls/hr DAILY IV 02/20/25 10:00 02/23/25 08:09 100 MLS/HR Laboratory Results Laboratory Tests 02/20/25 07:32 02/21/25 07:49 Urinalysis Test 02/19/25 00:20 Urine Color Brown (Yellow) H Urine Clarity Ex.turbid (Clear) Urine pH 5.5 (5.0-9.0) Urine Specific [place] 1.015 (1.001-1.035) Urine Protein 1+ (Negative) H Urine Ketones Negative (Negative) Urine Blood 2+ /uL (Negative) H Urine Nitrite Negative (Negative) Urine Bilirubin Negative (Negative) Urine Urobilinogen Normal mg/dL (Negative) Urine Leukocyte Esterase 3+ /uL (Negative) Urine RBC 53 /hpf (0 - 3) Urine WBC Clumps Present /hpf (None Seen) Urine Microscopic WBC 4870 /HPF (0-3) H Urine Squamous Epithelial Cells None seen /hpf (<5) Urine Bacteria None seen /hpf (None Seen) Urine Mucus Few (None Seen) Urine Glucose Normal mg/dL (Normal) Microbiology Microbiology Date/Time Source Procedure Growth Status 02/21/25 20:00 Nose MRSA Screen - Final Complete 02/19/25 13:44 Urine - [place] Urine Culture - Final Escherichia coli - ESBL Proteus mirabilis Complete 02/19/25 13:41 Blood Blood Culture - Preliminary NO GROWTH AFTER 72 HOURS OF INCUBATION. Resulted Assessment/Plan Assessment/Plan Sepsis UTI with ESBL BPH HTN DM2 PLAN: Ertapenem IV [facility] eval 02/22/2025: Continue the ertapenem IV Insert a new IV Pain control with [place] p.r.n. Continue gabapentin Tamsulosin for BPH Monitor closely The rest of the management will depend on the hospital course 02/23/2025: Continue IV ertapenem Monitor the patient closely Discharge planning for tomorrow Plan discussed with: Patient Date of Service: Feb 23, 2025 Billing Provider: LU LOJA MD Common Visit Codes: [id number] INP/OBS CARE(MOD) LU LOJA MD Feb 23, 2025 10:41
[2025-02-24 01:00] VITALS: BP 125/65; PULSE 79; RESP 16; TEMP 98.2; O2SAT 98
[2025-02-24 08:00] VITALS: PULSE 68; PULSE 71; RESP 18; O2SAT 96
[2025-02-24 08:41] VITALS: BP 122/53; PULSE 71; RESP 18; TEMP 98.3; O2SAT 96
--- NOTE | 2025-02-24 10:34 | DVHDS2 ---
Discharge Summary Date of Admission Feb 18, 2025 at 20:22 Date of Discharge: Feb 24, 2025 Labs/Diagnostic Data: Laboratory Results Test 02/24/25 05:35 02/21/25 07:49 02/20/25 07:32 02/19/25 06:37 POC Glucose 145 mg/dl (70-106) White Blood Count 7.8 10^3/uL (4.4-10.8) Red Blood Count 3.72 10^6/uL (4.5-5.90) Hemoglobin 11.6 g/dL (13.5-17.5) Hematocrit 34.8 % (41.0-53.0) Mean Corpuscular Volume 93.6 fL (80.0-100.0) Mean Corpuscular Hemoglobin 31.2 pg (28.0-32.0) Mean Corpuscular Hemoglobin Concent 33.3 g/dL (32.0-36.0) Red Cell Distribution Width 14.8 % (11.8-14.3) Platelet Count 315 10^3/uL (140-450) Mean Platelet Volume 7.3 fL (6.9-10.8) Neutrophils (%) (Auto) 71.1 % (37.0-80.0) Lymphocytes (%) (Auto) 14.0 % (10.0-50.0) Monocytes (%) (Auto) 10.5 % (0.0-12.0) Eosinophils (%) (Auto) 3.9 % (0.0-7.0) Basophils (%) (Auto) 0.5 % (0.0-2.0) Neutrophils # (Auto) 5.5 10 ^3/uL (1.6-8.6) Lymphocytes # (Auto) 1.1 10 ^3/uL (0.4-5.4) Monocytes # (Auto) 0.8 10 ^3/uL (0-1.3) Eosinophils # (Auto) 0.3 10 ^3/uL (0-0.8) Basophils # (Auto) 0 10 ^3/uL (0-0.2) Nucleated Red Blood Cells 0.0 % Sodium Level 139 mmol/L (136-145) Potassium Level 4.2 mmol/L (3.5-5.1) Chloride Level 107 mmol/L (98-107) Carbon Dioxide Level 21 mmol/L (20-31) Anion Gap 11 (5-15) Blood Urea Nitrogen 24 mg/dL (9-23) Creatinine 1.23 mg/dL (0.700-1.30) Glomerular Filtration Rate Calc 56 mL/min (>90) BUN/Creatinine Ratio 19.5 (10.0-20.0) Serum Glucose 88 mg/dL (74-106) Calcium Level 9.1 mg/dL (8.7-10.4) Vitamin B12 Level 663 pg/mL (211-911) Thyroid Stimulating Hormone (TSH) 1.24 uIU/mL (0.55-4.78) Total Bilirubin 0.4 mg/dL (0.2-1.0) Aspartate Amino Transferase (AST) 26 U/L (13-40) Alanine Aminotransferase (ALT) 12 U/L (7-40) Alkaline Phosphatase 65 U/L (46-116) Total Protein 7.0 g/dL (5.7-8.2) Albumin 4.1 g/dL (3.2-4.8) Test 02/19/25 00:20 Urine Color Brown (Yellow) Urine Clarity Ex.turbid (Clear) Urine pH 5.5 (5.0-9.0) Urine Specific [place] 1.015 (1.001-1.035) Urine Protein 1+ (Negative) Urine Ketones Negative (Negative) Urine Blood 2+ /uL (Negative) Urine Nitrite Negative (Negative) Urine Bilirubin Negative (Negative) Urine Urobilinogen Normal mg/dL (Negative) Urine Leukocyte Esterase 3+ /uL (Negative) Urine RBC 53 /hpf (0 - 3) Urine WBC Clumps Present /hpf (None Seen) Urine Microscopic WBC 4870 /HPF (0-3) Urine Squamous Epithelial Cells None seen /hpf (<5) Urine Bacteria None seen /hpf (None Seen) Urine Mucus Few (None Seen) Urine Glucose Normal mg/dL (Normal) Other Laboratory Tests 02/21/25 07:49 02/20/25 07:32 Brief Hx & Hospital Course: see dictated note Condition at Discharge: Fair Final Diagnosis/Problems List sepsis Discharge Disposition: Longterm Facility Discharge Instruct/Medications Diet: Regular Activity: No Restrictions, As Tolerated Follow Up/Referral: fu with pcp Medications: per mar Scheduled Donepezil Hydrochloride (Donepezil Hcl), 10 MG PO HS, (Reported) Escitalopram Oxalate (Escitalopram Oxalate), 1 TAB PO DAILY, (Reported) Escitalopram Oxalate (Lexapro), 5 MG PO DAILY, (Reported) Gabapentin (Gabapentin), 1 CAP PO TID, (Reported) Memantine Hydrochloride (Memantine HCl), 1 TAB PO HS, (Reported) Metformin Hydrochloride (Metformin Hcl), 1 TAB PO BID, (Reported) Rivaroxaban (Xarelto Tablet), 1 TAB PO HS, (Reported) Tamsulosin Hcl (Tamsulosin Hcl), 1 CAP PO HS, (Reported) Scheduled PRN Acetaminophen (Acetaminophen Extra Stren), 500 MG PO Q6HP PRN for MILD PAIN, (Reported) Acetaminophen (Apap), 2 TAB PO Q4HP PRN for TEMP GREATER THAN 100.4, (Reported) Diclofenac Sodium (Topical) (Aleve Arthritis Pain), 4 GM EX Q6HP PRN for MUSCLE PAIN, (Reported) Docusate Sodium (Colace), 100 MG PO BID PRN for bowel management, (Reported) Hydrocodone-Acetaminophen (Hydrocodone/Acetaminophen 10-325 mg), 1 TAB PO TID PRN for severe pain, (Reported) Ibuprofen Micronized (Ibuprofen), 800 MG PO Q8HP PRN for moderate pain, (Reported) Discharge Statement: "Patient was advised to return to the ER or call 911 if any headaches, dizziness, shortness of breath, chest pain, abdominal pain, bleeding, fevers, or worsening of medical condition. Patient was counseled about treatment plan, medications, possible side effects, patientverbalized understanding. All questions were answered to the best of my ability. This discharge took greater then 30 minutes in planning, reviewing documentation, counseling the patient, and discussing with other team members." ASSESSMENT ASSESSMENT Assessment sepsis Date of Service: Feb 24, 2025 Billing Provider: MATY BETANCOURT MD Common Visit Codes: [id number] DISCH DAY >30min MATY BETANCOURT MD Feb 24, 2025 10:34
--- NOTE | 2025-02-24 10:46 | DVHDS ---
DATE OF DISCHARGE: 02/24/2025 HISTORY OF PRESENT ILLNESS: The patient is an 89-year-old gentleman who was admitted with history of hematuria, dysuria, and headache. The patient has history of dementia, diabetes, hypertension, and depression. HOSPITAL COURSE: The patient had evidence of urinary tract infection, which grew ESBL E. coli and Proteus mirabilis. Blood cultures were negative. White count was elevated to 13,000 that improved to 7,000 at the time of discharge. The patient is now doing well and will be discharged to be on IV Invanz 1 gram daily for 10 days. He had a CT of the abdomen and pelvis that showed evidence of cholelithiasis and right inguinal hernia. A head CT showed no acute abnormality. The patient had a knee x-ray that showed DJD of the left knee as well as a hip x-ray that showed severe DJD of the left hip. The patient will be discharged with medications as per medication reconciliation. FINAL DIAGNOSES: * Sepsis with UTI due to ESBL E. coli. * BPH. * Diabetes mellitus. * Hypertension. * Dementia. * Left hip and knee DJD. * Gallstones. * Right inguinal hernia. Time spent in discharge planning and review of plan with the patient and nursing was 39 minutes. MD ROGERS Mccord/RADHA TID: [id number] RECEIPT: [id number]
[2025-02-24 13:00] VITALS: BP 128/65; PULSE 64; RESP 16; TEMP 97.9; O2SAT 99
[2025-02-24 16:41] VITALS: BP 126/80; PULSE 71; RESP 16; TEMP 98.8; O2SAT 95
[2025-02-24 16:56] VITALS: BP 126/86; PULSE 71; RESP 16; TEMP 98.8; O2SAT 95
== END 2025-02-24 20:51 | DRG 871 ==
LOC: EDBD 16:30 → ER 16:30 → OVERFLOW 20:22 → TELE-WESTW 23:56 → TELE-CENTR 02-21 20:27
PROVIDERS: ADMIT Internal Medicine; ATTEND Internal Medicine
PROC: 05HD33Z Insertion of Infusion Device into Right Cephalic Vein, Percutaneous Approach (ICD-10-PCS; principal; 2025-02-24)
PROC: B54MZZA Ultrasonography of Right Upper Extremity Veins, Guidance (ICD-10-PCS; 2025-02-24)
DX: A41.51 Sepsis due to Escherichia coli [E. coli] (principal); N17.0 Acute kidney failure with tubular necrosis; N30.00 Acute cystitis without hematuria; K40.90 Unilateral inguinal hernia, without obstruction or gangrene, not specified as recurrent; G30.9 Alzheimer's disease, unspecified; K80.20 Calculus of gallbladder without cholecystitis without obstruction; I10 Essential (primary) hypertension; N40.0 Benign prostatic hyperplasia without lower urinary tract symptoms; F02.B0 Dementia in other diseases classified elsewhere, moderate, without behavioral disturbance, psychotic disturbance, mood disturbance, and anxiety; F17.210 Nicotine dependence, cigarettes, uncomplicated; E11.9 Type 2 diabetes mellitus without complications; K44.9 Diaphragmatic hernia without obstruction or gangrene; M16.12 Unilateral primary osteoarthritis, left hip; M17.12 Unilateral primary osteoarthritis, left knee; F32.A Depression, unspecified; Z88.0 Allergy status to penicillin; Z79.899 Other long term (current) drug therapy
CPT/HCPCS: 36415; 70450; 71045; 73501; 73560; 74176; 80048; 80053; 81001; 82607; 82962; 84443; 85025; 87040; 87081; 87086; 87088; 87186; 93005; 93306; 96365; 96375; 97110; 97116; 97163; G0378; J1335; J1815; J2405